=== PATIENT | male | born 1945 | race Hispanic/Latino ===

== ENCOUNTER 2025-02-11 19:44 | Emergency (ER) | payer MEDICARE, OTHER ==
[~2025-02-11] VITALS: Ht 180.3 cm; Wt 80.3 kg
[~2025-02-11 19:44] MED LIST: NAPROXEN250 MG PO
[2025-02-11 19:57] VITALS: PULSE 61; RESP 18; TEMP 97.9
[2025-02-11] MEDS: ACETAMINOPHEN 325 MG TAB PO ONE (20:58)
[2025-02-11 23:44] VITALS: BP 173/86; PULSE 60; RESP 18; TEMP 98; O2SAT 99
== END 2025-02-11 23:44 | disposition home or self-care (01) ==
LOC: FSED 19:59
DX: S52.592A Other fractures of lower end of left radius, initial encounter for closed fracture (principal); S50.01XA Contusion of right elbow, initial encounter; W01.0XXA Fall on same level from slipping, tripping and stumbling without subsequent striking against object, initial encounter; Y93.01 Activity, walking, marching and hiking; Y92.89 Other specified places as the place of occurrence of the external cause; E78.5 Hyperlipidemia, unspecified; E03.9 Hypothyroidism, unspecified; M10.9 Gout, unspecified
CPT/HCPCS: 99283